=== PATIENT | female | born 1970 | race Caucasian/White ===

== ENCOUNTER → 2016-07-19 | Outpatient (CLI) | payer OTHER ==
[~2016-07-19] MED LIST: HYDROCODON-ACE1 EAC7 PO; PREVACID; PROTONIX PO; SYNTHROID PO
[2016-07-19 07:15] LABS: HEMATOCRIT 41.7 % (35.0-45.0); HEMOGLOBIN 13.3 gm/dL (12.0-16.0); MEAN CELL VOLUME 83.2 FL (83-96); MEAN CORPUSCULAR HEMOGLOBIN 26.6 PG (28-34); MEAN PLATELET VOLUME 7.5 FL (6.5-11.5); RED BLOOD COUNT 5.01 X10e (3.90-5.30); RED CELL DISTRIBUTION WIDTH 14.7 % (11.0-15.5); WHITE BLOOD COUNT 12.9 X10e3 (4.0-10.5)
[2016-07-19 08:40] LABS: ALBUMIN SERUM 3.8 g/dL (3.5-5.0); BILIRUBIN,TOTAL 0.4 mg/dL (0.2-2.0); BUN/CREATININE RATIO 17.5; CALCIUM SERUM 8.9 mg/dL (8.4-10.2); CREATININE SERUM 0.8 mg/dL (0.6-1.4); GLOM FILT RATE Estimated 90.4 mL/min (>60); PROTEIN TOTAL SERUM 6.7 g/dL (6.0-8.3)
== END | disposition home or self-care (01) ==
LOC: CLAB 06:50
PROVIDERS: Family Medicine
DX: R73.9 Hyperglycemia, unspecified (principal); J01.90 Acute sinusitis, unspecified; K86.1 Other chronic pancreatitis; I10 Essential (primary) hypertension
CPT/HCPCS: 36415; 80053; 80061; 83036; 85027

== ENCOUNTER → 2016-08-01 | Outpatient (CLI) | payer OTHER | END | disposition home or self-care (01) | LOC: CLAB 06:20 | DX: E11.65 Type 2 diabetes mellitus with hyperglycemia (principal) | CPT/HCPCS: 36415; 82947; 83036 ==

== ENCOUNTER → 2016-10-09 | Outpatient (CLI) | payer OTHER ==
--- NOTE | ~2016-10-09 | MY29 ---
[facility] A Service of [facility] RADIOLOGY TEXT RESULTS PATIENT: EDITH BROOKS LOCATION: [facility] : 74 UNIT #: [id number] AGE: [address]: Tim Post MD SEX: F ORDER DR: [id number] [facility] [address]. [place], [place] [address] [id number] O MR#: [id number] Acc #: [id number] NAME: EDITH BROOKS : 1970 SEX: F STUDY DATE/TIME: 10/09/2016 16:37 UNIT: [facility] ROOM: STUDY DESCRIPTION: MY PHOEBE SCREENING W/ CAD BILAT Attending Physician: Tim Post M.D. Referring Physician: Tim Post M.D. Ordering Physician: Tim Post M.D. Primary Care Physician: Tim Post M.D. MEDICAL IMAGING REPORT This report is preliminary unless electronic signature is present EXAM Digital screening mammogram 10/09/2016 HISTORY 46-year-old woman positive family history, mother age 52, aunt age 50. Annual screen. COMPARISON 05/12/2013 05/19/2015 FINDINGS Digital imaging of each breast was completed utilizing a two-view examination of each breast in craniocaudal and mediolateral-oblique projections. Review and interpretation of digital mammograms include a second review in conjunction with FDA-approved CAD device. There is a normal parenchymal presentation bilaterally consistent with the patient's age. There are no breast masses imaged and no parenchymal asymmetry is visualized. There are no suspicious microcalcifications and I see no focal architectural disturbance. IMPRESSION Negative screening digital mammogram. One-year followup recommended. Patients over the age of 40 are entered into a reminder system with target due date for the next mammogram. A result letter will also be sent to the patient. BIRADS: 1 Negative Dictated by... Shakir Lujan M.D. [facility] A Service of [facility] RADIOLOGY TEXT RESULTS PATIENT: EDITH BROOKS LOCATION: [facility] : 74 UNIT #: [id number] AGE: [address]: Tim Post MD SEX: F ORDER DR: THIS IS AN ELECTRONICALLY VERIFIED REPORT Shakir Lujan M.D. at 10/10/2016 2:24 PM KATI/rosa TD: 10/10/2016 12:58 JOB #: [id number] MEDICAL IMAGING REPORT Page 1 of 1 COPY
== END | disposition home or self-care (01) ==
LOC: CWCC 16:13
DX: Z12.31 Encounter for screening mammogram for malignant neoplasm of breast (principal); Z80.3 Family history of malignant neoplasm of breast
CPT/HCPCS: G0202